=== PATIENT | male | born 1995 | race Caucasian/White ===

== ENCOUNTER 2024-05-05 13:48 | Emergency (ER) | payer BC ==
[2024-05-05] MEDS ORDERED: Sodium Chloride 0.9% 1,000 ML ONE (15:09)
[2024-05-05 15:52] LABS: Band 5 % (5-11); Hemoglobin 16.2 g/dL (14.0-18.0); Lymphocytes 11 % (21-51); MDiff Complete? YES; Mean Corpuscular HGB CONC 31.1 g/dL (32.0-36.0); Mean Corpuscular Hemoglobin 27.7 pg (27.0-31.0); Mean Corpuscular Volume 88.9 fl (78.0-98.0); Mean Platelet Volume 7.5 fL (7.4-10.4); Monocytes 6 % (0-10); Neutrophil 78 % (42-75); Platelet Adequacy Comment Appears Adequate; Platelet Count 274 10x3/uL (130-400); RBC Distribution Width 11.9 % (11.5-14.5); Red Blood Cell (RBC) Count 5.84 mill/uL (4.70-6.10)
[2024-05-05 15:57] LABS: ALT (SGPT) 23 U/L (8-55); AST (SGOT) 24 U/L (5-34); Albumin 4.6 g/dL (3.5-5.0); Alkaline Phosphatase 48 U/L (40-110); Anion Gap 16 mmol/L (10-20); BUN (Urea Nitrogen) 17 mg/dL (8.9-20.6); Bilirubin, Total 0.6 mg/dL (0.2-1.2); Calc. Creatinine Clearance 0 mL/min (70-130); Calcium 9.9 mg/dL (7.8-10.44); Carbon Dioxide 22 mmol/L (22-29); Chloride 106 mmol/L (98-107); Estimated GFR 65; Globulin 3.3 g/dL (2.4-3.5); Glucose 98 mg/dL (70-105); Lipase 11 U/L (8-78); Potassium 4.5 mmol/L (3.5-5.1); Protein, Total 7.9 g/dL (6.0-8.3); Sodium 139 mmol/L (136-145); Troponin I Less than 0.010 ng/mL (< 0.028)
== END 2024-05-05 16:51 | disposition home or self-care (01) ==
LOC: MADERS 13:48
DX: E86.0 Dehydration (principal); R42 Dizziness and giddiness
CPT/HCPCS: 80053; 83690; 84484; 85025; 93005; 96360; J7030